=== PATIENT | male | born 1940 | race Caucasian/White ===

== ENCOUNTER 2018-09-01 15:37 | Emergency (ER) | payer MEDICARE, OTHER ==
[2018-09-01] MEDS ORDERED: ASPIRIN 81 MG CHEWABLE TABLET PO ONE (15:59)
[2018-09-01 16:11] LABS: BASO % 0.3 % (0-6); EOS % 0.6 % (0-6); HEMATOCRIT 38.1 % (42.0-52.0); LYMPH % 5.4 % (16-45); MEAN CELL VOLUME 91.1 fl (81-97); MEAN CORPUSCULAR HEMOGLOBIN 31.1 pg (27-33); MEAN CORPUSCULAR HGB CONC 34.1 g/dl (32-36); MEAN PLATELET VOLUME 9.4 fl (7.4-10.4); MONO % 0.8 % (0-9); PLATELET COUNT 263 K/uL (130-400); RED BLOOD COUNT 4.18 M/uL (4.40-5.70); RED CELL DISTRIBUTION WIDTH 12.7 % (11.5-14.5); WHITE BLOOD COUNT W/O DIFF 3.5 K/uL (4.2-12.2)
[2018-09-01 16:24] LABS: BLOOD UREA NITROGEN 15 mg/dL (8-23); CREATININE 1.2 mg/dL (0.7-1.2); EST GLOMERULAR FILTRATION RATE > 60 mL/min; INFLUENZA A NEGATIVE (NEGATIVE); INFLUENZA B NEGATIVE (NEGATIVE)
[2018-09-01 16:25] LABS: TOTAL PROTEIN 7.2 g/dL (6.6-8.7)
[2018-09-01 16:27] LABS: GLUCOSE,RANDOM 128 mg/dL (74-109)
[2018-09-01 16:30] LABS: ALB/GLOB RATIO 1.2 (1.1-1.8); ALBUMIN 3.9 g/dL (4.0-5.0); ALKALINE PHOSPHATASE 117 U/L (40-129); ALT/SGPT 10 U/L (<41); AST/SGOT 21 U/L (10.0-50.0)
[2018-09-01 16:31] LABS: ARTERIAL BLD GAS O2 SATURATION 92.4 % (95-98); ARTERIAL BLOOD GAS BASE EXCESS -1.6 mmol/L (-2 - 3); ARTERIAL BLOOD GAS PCO2 25.4 mmHg (35-48); ARTERIAL BLOOD GAS pH 7.51 (7.35-7.45); CARBOXYHEMOGLOBIN 1.5 % (0-1.5); METHEMOGLOBIN 0.4 % (0.0-1.5); O2 HEMOGLOBIN 90.7 % vol (94-99); TOTAL HEMOGLOBIN 11.5 g/dl (14-18)
[2018-09-01 16:41] LABS: ALLEN TEST PASS
[2018-09-01 16:50] LABS: CREATINE PHOSPHOKINASE 146 U/L (39-308)
[2018-09-01 16:51] LABS: CKMB 9.3 ng/mL (<6.73)
[2018-09-01] MEDS ORDERED: HEPARIN SODIUM 1000 UNIT/1 ML 10ML VIAL IVP ONE (16:56)
[2018-09-01] MEDS ORDERED: HEPARIN SODIUM/D5W 25,000 UNITS/500 ML BAG IV SCH ×2 (17:00→17:42)
[2018-09-01] MEDS ORDERED: ACETAMINOPHEN 500 MG TABLET PO ONE (17:33)
--- NOTE | 2018-09-01 17:44 | Emergency Department Record ---
History of Present Illness - General Chief Complaint: Shortness of breath Stated Complaint: JJ,SHAKING Time Seen by Provider: 09/01/18 15:54 Source: Patient, Family Mode of Arrival: Wheelchair Limitations: No limitations - History of Present Illness Initial Comments: pt started feeling cold 2 days ago, he then started feeling sob and running a fever yesterday. he had cp this morning which is gone now. he now feels very weak and sob. MD Complaint: Chest pain, Shortness of breath Onset/Timin -: Days(s) Quality: Aching Consistency: Constant Improves With: Nothing Worsens With: Exertion Associated Symptoms: Chest pain, Fever, Orthopnia Treatments Prior to Arrival: None - Related Data Home Medications Medication Instructions Recorded Confirmed Last Taken Cilostazol 100 mg PO DAILY 09/01/18 09/01/18 Unknown Losartan Potassium 100 mg PO DAILY 09/01/18 09/01/18 Unknown Meloxicam 15 mg PO DAILY 09/01/18 09/01/18 Unknown Metoprolol Tartrate 100 mg PO DAILY 09/01/18 09/01/18 Unknown Pravastatin Sodium [Pravachol] 40 mg PO DAILY 09/01/18 09/01/18 Unknown Allergies Allergy/AdvReac Type Severity Reaction Status Date / Time No Known Drug Allergies Allergy Verified 09/01/18 15:54 Travel Screening - Travel/Exposure Within Last 30 Days Have you traveled within the last 30 days?: No Review of Systems Reviewed: No additional complaints except as noted below Constitutional: Reports: As per HPI, Fever, Weakness. Denies: Chills, Malaise, Night sweats, Weight change Eyes: Reports: As per HPI. Denies: Eye discharge, Eye pain, Photophobia, Vision change ENT: Reports: As per HPI. Denies: Congestion, Dental pain, Ear pain, Epistaxis , Hearing loss, Throat pain Respiratory: Reports: As per HPI, Cough. Denies: Dyspnea, Hemoptysis, Stridor, Wheezes Cardiovascular: Reports: As per HPI, Chest pain. Denies: Arrhythmia, Dyspnea on exertion, Edema, Murmurs, Orthopnea, Palpitations, Paroxysmal nocturnal dyspnea, Rheumatic Fever, Syncope Endocrine: Reports: As per HPI. Denies: Fatigue, Heat or cold intolerance, Polydipsia, Polyuria Gastrointestinal: Reports: As per HPI. Denies: Abdominal pain, Constipation, Diarrhea, Hematemesis, Hematochezia, Melena, Nausea, Vomiting Genitourinary: Reports: As per HPI. Denies: Dysuria, Frequency, Hematuria, Incontinence, Retention, Testicular pain, Testicular mass, Urgency Musculoskeletal: Reports: As per HPI. Denies: Arthralgia, Back pain, Gout, Joint swelling, Myalgia, Neck pain Skin: Reports: As per HPI. Denies: Bruising, Change in color, Change in hair/ nails, Lesions, Pruritus, Rash Neurological: Reports: As per HPI. Denies: Abnormal gait, Confusion, Headache, Numbness, Paresthesias, Seizure, Tingling, Tremors, Vertigo, Weakness Psychiatric: Reports: As per HPI. Denies: Anxiety, Auditory hallucinations, Depression, Homicidal thoughts, Suicidal thoughts, Visual hallucinations Hematological/Lymphatic: Reports: As per HPI. Denies: Anemia, Blood Clots, Easy bleeding, Easy bruising, Swollen glands Past Medical History - SOCIAL HISTORY Smoking Status: Former smoker Alcohol Use: Rare Drug Use: None - RESPIRATORY Hx Respiratory Disorders: No - CARDIOVASCULAR Hx Cardio Disorders: Yes Hx Hypertension: Yes - NEURO Hx Neuro Disorders: No - GI Hx GI Disorders: No - Hx Genitourinary Disorders: No - ENDOCRINE Hx Endocrine Disorders: No - MUSCULOSKELETAL Hx Musculoskeletal Disorders: No - PSYCH Hx Psych Problems: No - HEMATOLOGY/ONCOLOGY Hx Hematology/Oncology Disorders: No Family Medical History Any Significant Family History?: No Physical Exam - General General Appearance: Alert, Oriented x3, Cooperative, Moderate distress - Head Head exam: Normal inspection - Eye Eye exam: Normal appearance, PERRL, EOMI Pupils: Normal accommodation - ENT ENT exam: Normal exam, Mucous membranes moist, Normal external ear exam, Normal orophraynx Ear exam: Normal external inspection. negative: External canal tenderness Nasal Exam: Normal inspection. negative: Discharge, Sinus tenderness Mouth exam: Normal external inspection, Tongue normal Teeth exam: Normal inspection. negative: Dental caries Throat exam: Normal inspection. negative: Tonsillar erythema, Tonsillar exudate - Neck Neck exam: Normal inspection, Full ROM. negative: Tenderness - Respiratory Respiratory exam: Normal lung sounds bilaterally. negative: Respiratory distress - Cardiovascular Cardiovascular Exam: Normal rhythm, Normal heart sounds, Tachycardia - GI/Abdominal GI/Abdominal exam: Soft, Normal bowel sounds. negative: Tenderness - Rectal Rectal exam: Deferred - exam: Deferred - Extremities Extremities exam: Normal inspection, Full ROM, Normal capillary refill. negative: Tenderness - Back Back exam: Reports: Normal inspection, Full ROM. 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 Medical Decision Making - Lab Data Result diagrams: 09/01/18 15:54 09/01/18 15:54 Lab Results 09/01/18 09/01/18 09/01/18 Range/Units 15:54 15:54 15:54 WBC 3.5 L (4.2-12.2) K/uL RBC 4.18 L (4.40-5.70) M/uL Hgb 13.0 L (14.0-18.0) gm/dl Hct 38.1 L (42.0-52.0) % MCV 91.1 (81-97) fl MCH 31.1 (27-33) pg MCHC 34.1 (32-36) g/dl RDW 12.7 (11.5-14.5) % Plt Count 263 (130-400) K/uL MPV 9.4 (7.4-10.4) fl Neutrophils % 94.0 H (47-80) % Band Neutrophils % 0.0 (0-5) % Lymphocytes % 5.4 L (16-45) % Monocytes % 0.8 (0-9) % Eosinophils % 0.6 (0-6) % Basophils % 0.3 (0-6) % Lymphocytes 4.0 L (16-45) % Monocytes 1.0 (0-9) % Eosinophil Count 1.0 (0-6) % D-Dimer 2.51 H (0-0.59) mg/L FEU Puncture Site pCO2 (35-48) mmHg pO2 (83-108) mmHg HCO3 (18-23) mmol/L Oxyhemoglobin (94-99) % vol ABG pH (7.35-7.45) ABG O2 Saturation (95-98) % ABG Base Excess (-2 - 3) mmol/L Gavino Test Carboxyhemoglobin (0-1.5) % Methemoglobin (0.0-1.5) % Total Hemoglobin (14-18) g/dl Actual Respiration Rate (10-18) /MIN FiO2 Sodium 125 L (136-145) mmol/L Potassium 4.1 (3.4-4.5) mmol/L Chloride 88 L (98-107) mmol/L Carbon Dioxide 21.0 L (22-29) mmol/L Anion Gap 16.0 (7-16) BUN 15 (8-23) mg/dL Creatinine 1.2 (0.7-1.2) mg/dL Estimated GFR > 60 mL/min Random Glucose 128 H (74-109) mg/dL Calcium 8.8 (8.8-10.2) mg/dL Total Bilirubin 0.90 (0.2-1.0) mg/dL AST 21 (10.0-50.0) U/L ALT 10 (<41) U/L Alkaline Phosphatase 117 (40-129) U/L Creatine Kinase 146 (39-308) U/L CK-MB (CK-2) 9.3 H (<6.73) ng/mL CK-MB (CK-2) Rel Index 6.30 H (0-4) % Troponin T 0.125 H* (0-0.010) ng/mL NT-Pro-B Natriuret Pep 3175.00 H (<450) pg/mL Total Protein 7.2 (6.6-8.7) g/dL Albumin 3.9 L (4.0-5.0) g/dL Globulin 3.3 (1.4-4.8) gm/dL Albumin/Globulin Ratio 1.2 (1.1-1.8) Influenza Type A Ag (NEGATIVE) Influenza Type B Ag (NEGATIVE) 09/01/18 09/01/18 09/01/18 Range/Units 15:54 15:54 15:54 WBC (4.2-12.2) K/uL RBC (4.40-5.70) M/uL Hgb (14.0-18.0) gm/dl Hct (42.0-52.0) % MCV (81-97) fl MCH (27-33) pg MCHC (32-36) g/dl RDW (11.5-14.5) % Plt Count (130-400) K/uL MPV (7.4-10.4) fl Neutrophils % (47-80) % Band Neutrophils % (0-5) % Lymphocytes % (16-45) % Monocytes % (0-9) % Eosinophils % (0-6) % Basophils % (0-6) % Lymphocytes (16-45) % Monocytes (0-9) % Eosinophil Count (0-6) % D-Dimer (0-0.59) mg/L FEU Puncture Site pCO2 (35-48) mmHg pO2 (83-108) mmHg HCO3 (18-23) mmol/L Oxyhemoglobin (94-99) % vol ABG pH (7.35-7.45) ABG O2 Saturation (95-98) % ABG Base Excess (-2 - 3) mmol/L Gavino Test Carboxyhemoglobin (0-1.5) % Methemoglobin (0.0-1.5) % Total Hemoglobin (14-18) g/dl Actual Respiration Rate (10-18) /MIN FiO2 Sodium (136-145) mmol/L Potassium (3.4-4.5) mmol/L Chloride (98-107) mmol/L Carbon Dioxide (22-29) mmol/L Anion Gap (7-16) BUN (8-23) mg/dL Creatinine (0.7-1.2) mg/dL Estimated GFR mL/min Random Glucose (74-109) mg/dL Calcium (8.8-10.2) mg/dL Total Bilirubin (0.2-1.0) mg/dL AST (10.0-50.0) U/L ALT (<41) U/L Alkaline Phosphatase (40-129) U/L Creatine Kinase Cancelled Cancelled (39-308) U/L CK-MB (CK-2) (<6.73) ng/mL CK-MB (CK-2) Rel Index Cancelled (0-4) % Troponin T (0-0.010) ng/mL NT-Pro-B Natriuret Pep (<450) pg/mL Total Protein (6.6-8.7) g/dL Albumin (4.0-5.0) g/dL Globulin (1.4-4.8) gm/dL Albumin/Globulin Ratio (1.1-1.8) Influenza Type A Ag Negative (NEGATIVE) Influenza Type B Ag Negative (NEGATIVE) 09/01/18 Range/Units 16:03 WBC (4.2-12.2) K/uL RBC (4.40-5.70) M/uL Hgb (14.0-18.0) gm/dl Hct (42.0-52.0) % MCV (81-97) fl MCH (27-33) pg MCHC (32-36) g/dl RDW (11.5-14.5) % Plt Count (130-400) K/uL MPV (7.4-10.4) fl Neutrophils % (47-80) % Band Neutrophils % (0-5) % Lymphocytes % (16-45) % Monocytes % (0-9) % Eosinophils % (0-6) % Basophils % (0-6) % Lymphocytes (16-45) % Monocytes (0-9) % Eosinophil Count (0-6) % D-Dimer (0-0.59) mg/L FEU Puncture Site Left wrist pCO2 25.4 L (35-48) mmHg pO2 53.0 L (83-108) mmHg HCO3 20.0 (18-23) mmol/L Oxyhemoglobin 90.7 L (94-99) % vol ABG pH 7.51 H (7.35-7.45) ABG O2 Saturation 92.4 L (95-98) % ABG Base Excess -1.6 (-2 - 3) mmol/L Gavino Test Pass Carboxyhemoglobin 1.5 (0-1.5) % Methemoglobin 0.4 (0.0-1.5) % Total Hemoglobin 11.5 L (14-18) g/dl Actual Respiration Rate 22.0 H (10-18) /MIN FiO2 Not Reportable Sodium (136-145) mmol/L Potassium (3.4-4.5) mmol/L Chloride (98-107) mmol/L Carbon Dioxide (22-29) mmol/L Anion Gap (7-16) BUN (8-23) mg/dL Creatinine (0.7-1.2) mg/dL Estimated GFR mL/min Random Glucose (74-109) mg/dL Calcium (8.8-10.2) mg/dL Total Bilirubin (0.2-1.0) mg/dL AST (10.0-50.0) U/L ALT (<41) U/L Alkaline Phosphatase (40-129) U/L Creatine Kinase (39-308) U/L CK-MB (CK-2) (<6.73) ng/mL CK-MB (CK-2) Rel Index (0-4) % Troponin T (0-0.010) ng/mL NT-Pro-B Natriuret Pep (<450) pg/mL Total Protein (6.6-8.7) g/dL Albumin (4.0-5.0) g/dL Globulin (1.4-4.8) gm/dL Albumin/Globulin Ratio (1.1-1.8) Influenza Type A Ag (NEGATIVE) Influenza Type B Ag (NEGATIVE) Disposition Disposition: Transfer (acute PA) Clinical Impression: Hyponatremia Acute PA Qualifiers: Myocardial infarction type: unspecified Involved coronary artery: unspecified coronary artery Qualified Code(s): I21.9 - Acute myocardial infarction, unspecified Pneumonia Qualifiers: Pneumonia type: due to unspecified organism Laterality: bilateral Lung location : lower lobe of lung Qualified Code(s): J18.1 - Lobar pneumonia, unspecified organism Disposition: Acute Care Hospital Transfer Transfer To: [facility] Reason For Transfer: needs higher level of care and habitat biologist Accepting Physician: dr chowdhury Time Discussed w/Accepting Physician: 18:29 Quality - Quality Measures Quality Measures: N/A - Blood Pressure Screening Does Patient Have Any of the Following: No Blood Pressure Classification: Hypertensive Reading Systolic Measurement: 185 Diastolic Measurement: 98 Screening for High Blood Pressure: < First Hypertensive BP, F/U Documented > [ [id number]] First Hypertensive Follow-up Interventions: Follow-up with rescreen GT 1 day and LT 4 weeks.
[2018-09-01 17:57] LABS: INR 1.1; PARTIAL THROMBOPLASTIN TIME 31.4 SECONDS (24.5-39.1); PROTHROMBIN TIME (PATIENT) 10.6 SECONDS (9.5-12.1)
[2018-09-01] MEDS ORDERED: CEFTRIAXONE 1GM/50ML BAG 1 GM/50 ML BAG IVPB ONE (18:06)
[2018-09-01] MEDS ORDERED: DOXYCYCLINE HYCLATE 100 MG CAPSULE PO ONE (18:30)
--- NOTE | 2018-09-04 10:44 | RADIOLOGY REPORT ---
EXAM: PORTABLE CHEST HISTORY: SHORTNESS OF BREATH FOR ONE DAY. TECHNIQUE: A single frontal view of the chest was obtained. Comparison: Chest radiograph 08/01/12. FINDINGS: Borderline cardiac silhouette enlargement. The pulmonary vasculature is not appreciably dilated. Patchy bibasilar pulmonary opacities. No significant definable pleural fluid collection. No visible pneumothorax. IMPRESSION: PATCHY BIBASILAR PULMONARY OPACITIES; APPEARANCE IS NEW OR PROGRESSED FROM 2013 COMPARISON. FINDINGS MAY REPRESENT ATELECTASIS AND/OR ACUTE AIR SPACE DISEASE. JOB NUMBER: [id number] [facility]
--- NOTE | 2018-09-04 10:50 | CT ANGIOGRAM REPORT ---
EXAM: CT ANGIOGRAM OF THE CHEST HISTORY: ELEVATED D-DIMER. MYOCARDIAL INFARCTION. EVALUATE FOR PULMONARY EMBOLUS. TECHNIQUE: Routine CTA examination of the chest was performed utilizing a pulmonary embolus protocol with 80 ml of Omnipaque 350 utilized. Maximum intensity projection reformatted images are generated in multiple planes and reviewed. Comparison: CT chest with contrast dated 08/14/12. FINDINGS: Opacification of the pulmonary arteries is less than optimal. Opacification is satisfactory for interpretation centrally. Additionally, evaluation of the segmental arteries is limited by motion artifact at several levels. No luminal filling defect is noted in the outflow tract, main arteries nor lobar arteries to suggest acute pulmonary embolus. The proximal segmental arteries that are unaffected by respiratory motion are without luminal filling defect. The heart is not grossly enlarged. There is a borderline pericardial effusion. There is dense atherosclerotic calcification of the left coronary artery and its branches.. Mild to moderate atherosclerotic calcification of the right coronary artery is suspected. No intraabdominal nor retroperitoneal lymphadenopathy. The lungs are hyperinflated consistent with COPD. Mild intralobular septal thickening is noted in the upper lungs. Reticular opacity prominence is noted in each lung base. This is more pronounced than on the 2013 examination. This may relate to progression of pulmonary fibrosis though edema supposed on fibrosis cannot be excluded. There is mild wall thickening of several segmental bronchi consistent with bronchitis. No pleural effusion. The adrenal glands are not enlarged. No lytic or blastic bone lesion. IMPRESSION: 1. EVALUATION OF THE SEGMENTAL ARTERIES IS LIMITED BY SUBOPTIMAL OPACIFICATION WELL BY MOTION ARTIFACT. NO EVIDENCE OF ACUTE PULMONARY EMBOLIC DISEASE WITHIN THE OUTFLOW TRACT, MAIN ARTERIES, LOBAR ARTERIES, OR PROXIMAL SEGMENTAL ARTERIES THAT ARE UNAFFECTED BY MOTION. 2. DENSE CALCIFICATION WITHIN THE LEFT CORONARY ARTERY AND ITS BRANCHES. 3. BORDERLINE CARDIOMEGALY. 4. RETICULAR OPACITY PROMINENCE IN EACH LUNG BASE MORE PRONOUNCED SINCE THE 2013 EXAMINATION. THIS MAY RELATE TO PROGRESSION OF CHRONIC INTERSTITIAL CHANGES THOUGH INTERSTITIAL EDEMA SUPERIMPOSED ON CHRONIC INTERSTITIAL CHANGE WOULD BE DIFFICULT TO EXCLUDE. MINOR INTRALOBULAR SEPTAL THICKENING ALSO SUGGESTED IN THE LUNG APICES. THIS CAN ALSO BE SEEN WITH EDEMA. 5. MILD WALL THICKENING OF SEVERAL SEGMENTAL BRONCHI. THIS CAN BE SEEN WITH BRONCHITIS OR REACTIVE AIRWAYS DISEASE. ADDENDUM: Not mentioned in the original report, cholelithiasis within the gallbladder neck JOB NUMBER: [id number] [facility]
== END 2018-09-01 20:50 | disposition short-term general hospital (02) ==
LOC: ER 15:37
DX: I21.9 Acute myocardial infarction, unspecified (principal); J18.1 Lobar pneumonia, unspecified organism; E87.1 Hypo-osmolality and hyponatremia; R53.1 Weakness; I10 Essential (primary) hypertension; Z87.891 Personal history of nicotine dependence
CPT/HCPCS: 99285 ×2; 96365; 96366; 96375; 82550; 83605; 85730; 85610; 82375; 82553; 80053; 82803; 87400; 84484; 85379; 85027; 83880; 71045; 71275; 36600; 93005; 93010; Q9967; J0696

== ENCOUNTER 2018-09-13 11:45 | Inpatient (IN) | payer MEDICARE, OTHER ==
[2018-09-13] MEDS ORDERED: PNEUM 13-VAL/PF 0.5 ML IM ONE (17:08)
--- NOTE | 2018-09-13 18:06 | History & Physical ---
History of Present Illness - Date Date of Service for History & Physical: 09/13/18 - History of Present Illness Admitting Diagnosis: deconditioning s/p CABG History of Present Illness: Patient had a non elevated AL and than had CADG times three on 09/04/2018 and transferred here to get stronger General - Cognitive Patterns Speech: Normal Orientation: Oriented x3 - Communication Preferred Language?: Polish Level of Education: College Comprehension Ability: No Impairment Able to Read: Yes Able to Write: Yes Select best description of speech pattern: Clear Speech Ability to express ideas and wants: Understood Understanding verbal content: Understands - Psychosocial Well-Being Usual Living Arrangement: Spouse - Physical Functioning Activity Level: Up with assist x1 Turning: Self ad evan ROM Ability: Moves all extremities Ambulation Ability: Independent Bed Mobility: Independent Transfer Ability: Independent Bathing Ability: Independent Personal Hygiene: Independent Dressing Ability: Dependent Eating (Feeding) Ability: Independent Toileting Ability: Independent Administer Own Medication: Independent - Continence Bowel Pattern: Diarrhea Bladder Pattern: Normal - Dental Status Unable to examine: No Broken or loosely fitting full or partial dentures: No No natural teeth or tooth fragment(s) (edentulous): No Abnormal mouth tissue (ulcers, masses, oral lesions, etc.): No Obvious or likely cavity or broken natural teeth: No Inflamed or bleeding gums or loose natural teeth: No Mouth/facial pain, discomfort or difficulty chewing: No - Nutrition Screening Poor oral intake > 1 week: No Unplanned weight loss in specified time frame: No Nutrition Support via tube feedings or parenteral nutrition: No Pressure Ulcer: No Significantly underweight define as BMI <18.5 kg/m2: No Albumin <2.5mg/dL: No Persistent nausea/vomiting/diarrhea >3 days: No Difficulty chewing/swallowing/mouth sores: Yes Review of Systems Reviewed: No additional complaints except as noted below Constitutional: Reports: As per HPI. Denies: Chills, Fever, Malaise, Night sweats, Weakness, Weight change Eyes: Reports: As per HPI. Denies: Eye discharge, Eye pain, Photophobia, Vision change ENT: Reports: As per HPI. Denies: Congestion, Dental pain, Ear pain, Epistaxis , Hearing loss, Throat pain Respiratory: Reports: As per HPI. Denies: Cough, Dyspnea, Hemoptysis, Stridor, Wheezes Cardiovascular: Reports: As per HPI. Denies: Arrhythmia, Chest pain, Dyspnea on exertion, Edema, Murmurs, Orthopnea, Palpitations, Paroxysmal nocturnal dyspnea, Rheumatic Fever, Syncope Endocrine: Reports: As per HPI. Denies: Fatigue, Heat or cold intolerance, Polydipsia, Polyuria Gastrointestinal: Reports: As per HPI. Denies: Abdominal pain, Constipation, Diarrhea, Hematemesis, Hematochezia, Melena, Nausea, Vomiting Genitourinary: Reports: As per HPI. Denies: Dysuria, Frequency, Hematuria, Incontinence, Retention, Testicular pain, Testicular mass, Urgency Musculoskeletal: Reports: As per HPI. Denies: Arthralgia, Back pain, Gout, Joint swelling, Myalgia, Neck pain Skin: Reports: As per HPI. Denies: Bruising, Change in color, Change in hair/ nails, Lesions, Pruritus, Rash Neurological: Reports: As per HPI. Denies: Abnormal gait, Confusion, Headache, Numbness, Paresthesias, Seizure, Tingling, Tremors, Vertigo, Weakness Psychiatric: Reports: As per HPI. Denies: Anxiety, Auditory hallucinations, Depression, Homicidal thoughts, Suicidal thoughts, Visual hallucinations Hematological/Lymphatic: Reports: As per HPI. Denies: Anemia, Blood Clots, Easy bleeding, Easy bruising, Swollen glands Past Medical History - SOCIAL HISTORY Smoking Status: Former smoker Alcohol Use: Occasional - SURGICAL HISTORY Past Surgical History: knee - RESPIRATORY Hx Respiratory Disorders: No - CARDIOVASCULAR Hx Cardio Disorders: Yes Hx Hypertension: Yes - NEURO Hx Neuro Disorders: No - GI Hx GI Disorders: No - Hx Genitourinary Disorders: No - ENDOCRINE Hx Endocrine Disorders: No - MUSCULOSKELETAL Hx Musculoskeletal Disorders: No - PSYCH Hx Psych Problems: No - HEMATOLOGY/ONCOLOGY Hx Hematology/Oncology Disorders: No Family Medical History Any Significant Family History?: Yes Hx Cancer: Father H&P Meds/Allergies - Allergies Allergies: Allergies Allergy/AdvReac Type Severity Reaction Status Date / Time No Known Drug Allergies Allergy Verified 09/01/18 15:54 - Active Medications Active Medications: Current Medications Amiodarone HCl (Pacerone) 200 mg PO BID [facility] Stop: 09/19/18 22:01 Amiodarone HCl (Pacerone) 200 mg PO DAILY [facility] Ascorbic Acid (Vitamin C) 1,000 mg PO BID [facility] Stop: 09/26/18 22:01 Aspirin (Ecotrin (Ec)) 81 mg PO DAILY [facility] Calcium/Vitamin D (Calcium 500+D Tablet) 1 tab PO BID [facility] Carvedilol (Coreg) 6.25 mg PO BID [facility] Losartan Potassium (Cozaar) 25 mg PO DAILY [facility] Magnesium Oxide (Mag Ox) 400 mg PO DAILY [facility] Multivitamins/Minerals (Centrum) 1 tab PO DAILY [facility] Simvastatin (Zocor) 20 mg PO QHS [facility] Physical Exam - Vital Signs Vital Signs: Vital Signs - Last 24 Hrs Temp Pulse Resp BP Pulse Ox 09/13/18 11:30 97.8 F 67 16 121/68 99 - General General Appearance: Alert, Oriented x3, Cooperative, No acute distress - Head Head exam: Normal inspection - Eye Eye exam: Normal appearance, PERRL Pupils: Normal accommodation - ENT ENT exam: Normal exam, Mucous membranes moist, Normal external ear exam, Normal orophraynx, TM's normal bilaterally Ear exam: Normal external inspection. negative: External canal tenderness Nasal Exam: Normal inspection. negative: Discharge, Sinus tenderness Mouth exam: Normal external inspection, Tongue normal Teeth exam: Normal inspection. negative: Dental caries Throat exam: Normal inspection. negative: Tonsillar erythema, Tonsillar exudate - Neck Neck exam: Normal inspection, Full ROM. negative: Tenderness - Respiratory Respiratory exam: Normal lung sounds bilaterally. negative: Respiratory distress - Cardiovascular Cardiovascular Exam: Regular rate, Normal rhythm, Normal heart sounds - GI/Abdominal GI/Abdominal exam: Soft, Normal bowel sounds. negative: Tenderness - Rectal Rectal exam: Deferred - exam: Deferred - Extremities Extremities exam: Normal inspection, Full ROM, Normal capillary refill. negative: Tenderness - Back Back exam: Reports: Normal inspection, Full ROM. Denies: Muscle spasm, Rash noted, Tenderness - Neurological Neurological exam: Alert, Normal gait, Oriented X3, Reflexes normal - Psychiatric Psychiatric exam: Normal affect, Normal mood - Skin Skin exam: Dry, Intact, Normal color, Warm H&P Results - Labs Result Diagrams: 09/14/18 06:00 09/14/18 06:00 Discharge Potential - Discharge Potential Discharge Potential: good discharge potential Plan - Swing Bed Certification Initial Certification Due: 09/13/18 14 Day Re-Cert Due: 09/27/18 44 Day Re-Cert Due: 10/27/18 74 Day Re-Cert Due: 11/26/18 - Detailed Diagnosis and Plan (1) NSTEMI (non-ST elevated myocardial infarction) Current Visit: Yes Status: Acute Base Code: I21.4 - NON-ST ELEVATION (NSTEMI ) MYOCARDIAL INFARCTION Priority: High (2) S/P CABG x 3 Current Visit: Yes Status: Acute Base Code: Z95.1 - PRESENCE OF AORTOCORONARY BYPASS GRAFT Priority: High (3) Atrial fib/flutter, transient Current Visit: Yes Status: Acute Base Code: [id number] - Priority: Medium (4) Hypertension Current Visit: Yes Status: Acute Qualifiers: Hypertension type: essential hypertension Qualified Code(s): I10 - Essential (primary) hypertension Base Code: I10 - ESSENTIAL (PRIMARY) HYPERTENSION Priority: Medium (5) Hypercholesteremia Current Visit: Yes Status: Acute Base Code: E78.00 - PURE HYPERCHOLESTEROLEMIA, UNSPECIFIED Priority: Medium (6) PAD (peripheral artery disease) Current Visit: Yes Status: Acute Base Code: I73.9 - PERIPHERAL VASCULAR DISEASE, UNSPECIFIED Priority: Medium
--- NOTE | 2018-09-13 18:26 | Rehab Evaluation ---
Patient Information - Patient Information Diagnosis: Deconditioning s/p CABG, three vessel Ordered Treatment: PT Evaluate and Treat Status: Initial Evaluation Surgery: Yes (3 vessel CABG) Date of Surgery: 10/04/18 History: Detail (Pt presented to [facility] ED on 09/01/18 w/chest pain and shortness of breath. He was subsequently transferred to [facility] with acute myocardial infarction. Underwent 3 vessel CABG on 09/04/18 and is admitted for short term rehabilitation to address deconditioning.) Past Medical/Surgical Hx: PAST MEDICAL/SURGICAL HISTORY Past Surgical History knee PMH - Respiratory Hx Respiratory Disorders No PMH - Cardiovascular Hx Cardiovascular Disorders Yes Hx Hypertension Yes PMH - Neuro Hx Neurological Disorders No PMH - GI Hx Gastrointestinal Disorders No PMH - Hx Genitourinary Disorders No PMH - Endocrine Hx Endocrine Disorders No PMH - Musculoskeletal Hx Musculoskeletal Disorders No PMH - Psych Hx Psychiatric Problems No PMH - Hematology/Oncology Hx Hematology/Oncology No Disorders Premorbid Status: Detail (Pt was actively participating in usual ADLs, including 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 He did not engage in regular exercise but was active with daily activities. He was independent with all self-care activities, yardwork, and horse maintenance. He reports that he fell 2 or 3 times just before coming to the ED because he felt so weak, but generally has no balance difficulties. He did not use any assistive device for ambulation, but he does own a cane.) Social History: Detail (Pt lives with his Pat and one dog and one cat, in a single story home with an unfinished basement (14 stairs). There are three steps to enter from the front and from the garage, 6 steps at the back deck. No handrail at the front, freezer next to the steps in the garage, and B handrails at the deck. He usually drives a big tydy truck, and he and his travel frequently with a fifth wheel trailer, that he admits is becoming a bit more difficult to manage.) Precautions: [place], Fall - Time With Patient Total Time Spent With Patient (Min): 40 Treatment Procedures: Detail (PT Evaluation) Subjective Information - Subjective Information Per Patient (Pt reclined in bed upon arrival; awake, alert, cooperative/eager for therapy. Denies pain at rest; actively using chest hugger to guard during mobility.) Objective Data - Pain Pain Present: No - Mental Status Patient Orientation: Oriented x3 - Visual Perception Appears within normal limits for therapeutic activities - ROM Within normal limits - Strength/Tone Not within normal limits (Grossly 4/5 in B proximal LE's, otherwise 4+/5.) - Coordination Appears within normal limits for therapeutic activities - Bed Mobility Needs Assist (Pt was able to come to sitting at edge of bed with HOB elevated; suspect he would require assist to come to sitting from lying on flat surface.) - Transfers Independent (Came to standing at front wheeled walker from bed, elevated somewhat for ease.) - Balance Balance Sitting: Good Balance Standing: Good - Sensation Intact - Gait Detail (Pt ambulated from bedside out to underwood, to nrsg station, and back to room to sit in recliner (about 156 feet) w/CGA, with front wheeled walker. Mildy winded upon sitting, but was able to converse while walking.) Therapy Assessment - Therapy Assessment Detail (Pt exhibits mild proximal LE weakness, impaired activity tolerance, and difficulty with mobility consistent with deconditioning from medical procedure and hospitalization. He is a good candidate for short term rehabilitation to facilitate safe return to home environment.) Patient Education - Patient Education Teaching Topic: Equipment Use, Precautions Response: Verbalize Understanding Teaching Method: Discussion Teaching Recipient: Patient, Family Barriers To Learning: None Problem List - Problem List Physical Therapy Problem List: Detail (1. Requires assist for bed mobility. 2. Impaired activity tolerance. 3. Mild proximal LE weakness.) Goals - Goals Physical Therapy Goals: 1. Formally assess balance. 2. Pt will be independent with bed mobility. 3. Pt will tolerate 20 minutes of low intensity activity/exercise without undue fatigue. 4. Pt will exhibit 4+/5 strength in B proximal LE's for stability with ambulation w/or w/o assistive device. 5. Pt will safely and independently ambulate over short community distances/surfaces with least restrictive assistive device. Prognosis - Prognosis Good Plan - Plan Physical Therapy Plan: Pt will be seen 1-2 times daily M - F for gait and balance training, mobility training, instruction in therapeutic exercise.
[2018-09-13] MEDS ORDERED: POTASSIUM CHLORIDE 10 MEQ TAB PO SCH (22:00)
[2018-09-13] MEDS: CALCIUM CARB/VITAMIN D 500MG/200IU PO SCH (23:01)
[2018-09-13] MEDS: CARVEDILOL 3.125 MG TABLET PO SCH (23:01)
[2018-09-13] MEDS: AMIODARONE HCL 200 MG TABLET PO SCH (23:02)
[2018-09-13] MEDS: ASCORBIC ACID 500 MG TAB PO SCH (23:02)
[2018-09-13] MEDS: SIMVASTATIN 20 MG TABLET PO SCH (23:02)
[2018-09-14 06:38] LABS: HEMATOCRIT 26.5 % (42.0-52.0); HEMOGLOBIN 8.5 gm/dl (14.0-18.0); MEAN CORPUSCULAR HEMOGLOBIN 30.1 pg (27-33); MEAN CORPUSCULAR HGB CONC 32.1 g/dl (32-36); MEAN PLATELET VOLUME 8.1 fl (7.4-10.4); PLATELET COUNT 535 K/uL (130-400); RED BLOOD COUNT 2.82 M/uL (4.40-5.70); WHITE BLOOD COUNT W/O DIFF 11.5 K/uL (4.2-12.2)
[2018-09-14 06:45] LABS: BLOOD UREA NITROGEN 18 mg/dL (8-23); CREATININE 1.1 mg/dL (0.7-1.2); EST GLOMERULAR FILTRATION RATE > 60 mL/min; GLUCOSE,RANDOM 117 mg/dL (74-109)
[2018-09-14 06:50] LABS: HYPOCHROMIA 1+
[2018-09-14] MEDS: CALCIUM CARB/VITAMIN D 500MG/200IU PO SCH ×2 (09:52→22:02)
[2018-09-14] MEDS: ASCORBIC ACID 500 MG TAB PO SCH ×2 (09:53→22:01)
[2018-09-14] MEDS: ENOXAPARIN 40 MG/0.4 ML SYR SQ SCH (09:53)
[2018-09-14] MEDS: LOSARTAN POTASSIUM 25 MG TABLET PO SCH (09:53)
[2018-09-14] MEDS: AMIODARONE HCL 200 MG TABLET PO SCH ×2 (09:53→22:02)
[2018-09-14] MEDS: MULTIVITAMINS/MINERALS TABLET PO SCH (09:53)
[2018-09-14] MEDS: ASPIRIN 81 MG TABEC PO SCH (09:53)
[2018-09-14] MEDS: CARVEDILOL 3.125 MG TABLET PO SCH ×2 (09:53→22:03)
[2018-09-14] MEDS: MAGNESIUM OXIDE 400 MG TABLET PO SCH (09:53)
[2018-09-14] MEDS ORDERED: FUROSEMIDE 40 MG TABLET PO SCH (10:00)
--- NOTE | 2018-09-14 13:20 | Rehab Evaluation ---
Patient Information - Patient Information Diagnosis: Deconditioning s/p CABG x 3 Ordered Treatment: OT Evaluate and Treat Status: Initial Evaluation Surgery: Yes (3 vessel CABG) Date of Surgery: 09/04/18 History: Detail (Pt presented to [facility] ED on 09/01/18 w/chest pain and shortness of breath. He was subsequently transferred to [facility] with acute myocardial infarction. Underwent 3 vessel CABG on 09/04/18 and is admitted for short term rehabilitation to address deconditioning.) Past Medical/Surgical Hx: PAST MEDICAL/SURGICAL HISTORY Past Surgical History knee PMH - Respiratory Hx Respiratory Disorders No PMH - Cardiovascular Hx Cardiovascular Disorders Yes Hx Hypertension Yes PMH - Neuro Hx Neurological Disorders No Hx Seizures No PMH - GI Hx Gastrointestinal Disorders No PMH - Hx Genitourinary Disorders No PMH - Endocrine Hx Endocrine Disorders No PMH - Musculoskeletal Hx Musculoskeletal Disorders No PMH - Psych Hx Psychiatric Problems No PMH - Hematology/Oncology Hx Hematology/Oncology No Disorders Premorbid Status: Detail (Pt was actively participating in usual ADLs, including 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 He did not engage in regular exercise but was active with daily activities. He was independent with all self-care activities, yardwork, washing dishes and horse maintenance. He reports that he fell 2 or 3 times just before coming to the ED because he felt so weak, but generally has no balance difficulties. He did not use any assistive device for ambulation, but he does own a cane.) Social History: Detail (Pt lives with his Pat and one dog and one cat, in a single story home with an unfinished basement (14 stairs). He does have a workshop in the basement. There are three steps to enter from the front and from the garage, 6 steps at the back deck. No handrail at the front, freezer next to the steps in the garage, and B handrails at the deck. He has a walk in shower and a tub/shower combination, no seat but he has suction cup grab bars if needed. He has an elevated toilet in the main bathroom and a standard height toilet in the second bathroom, no grab bars next to either toilet. 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, and he and his travel frequently with a fifth wheel trailer, that he admits is becoming a bit more difficult to manage.) Precautions: [place], Fall, Other (No lifting greater than 10#) - Time With Patient Total Time Spent With Patient (Min): 60 Treatment Procedures: Detail (OT eval low complexity) Subjective Information - Subjective Information Per Patient Objective Data - Pain Pain Present: No - Mental Status Patient Orientation: Oriented x3 - Visual Perception Appears within normal limits for therapeutic activities - ROM Not within normal limits (Ethan shoulder flexion limited slightly due to surgery, remaining ethan UE AROM WNL) - Strength/Tone Not within normal limits (Ethan shoulder flexion not tested due to surgical restrictions although it is functional for self cares, ethan elbow and spark tester strength 4+/5) - Coordination Appears within normal limits for therapeutic activities - Transfers Needs Assist (Min assist for sit to stand from standard height toilet and shower seat.) - Balance Balance Sitting: Good Balance Standing: Good - Sensation Intact - Gait Detail (Pt ambulating in room with 2 wheeled walker Indly.) - ADL's/IADL's Detail (Pt able to complete showering in sitting and standing with min assist for sit to stand and assist for washing back. Pt Ind with doffing briefs, slipper socks and gown and donning shirt, underwear, shorts and slip on shoes. Pt Ind with standing at sink for oral hygiene and combing hair.) Therapy Assessment - Therapy Assessment Detail (Pt is Ind with showering in sitting and standing with no significant c/ o fatigue. UE AROM and strength limited slightly due to surgical precautions. Min assist for sit to stand from lower surfaces.) Problem List - Problem List Physical Therapy Problem List: Detail (1. Requires assist for bed mobility. 2. Impaired activity tolerance. 3. Mild proximal LE weakness.) Occupational Therapy Problem List: Detail (1. Slightly impaired activity tolerance. 2. Decreased functional mobility/sit to stand transfers) Goals - Goals Physical Therapy Goals: 1. Formally assess balance. 2. Pt will be independent with bed mobility. 3. Pt will tolerate 20 minutes of low intensity activity/exercise without undue fatigue. 4. Pt will exhibit 4+/5 strength in B proximal LE's for stability with ambulation w/or w/o assistive device. 5. Pt will safely and independently ambulate over short community distances/surfaces with least restrictive assistive device. Occupational Therapy Goals: 1. Pt will tolerate ADL/IADL activity with minimal c/o fatigue. 2. Pt will be Ind with functional mobility needed for Ind self cares. Prognosis - Prognosis Good Plan - Plan Physical Therapy Plan: Pt will be seen 1-2 times daily M - F for gait and balance training, mobility training, instruction in therapeutic exercise. Occupational Therapy Plan: OT 2-4 times per week to address goals and problem list above.
--- NOTE | 2018-09-14 13:47 | Physical Therapy Tx Note ---
Physical Therapy Tx Note - Treatment Note Tolerated: Good Total Time Spent With Patient: 20 Physical Therapy Tx Note: Detail (The patient was up in chair when PT arrived. The patient's was present for PT treatment. The patient ambulated with front wheeled walker a distance of 134 feet independently. The patient ambulated on 3 steps with use of one railing with supervision for safety only and on a curb step using proper technique with supervision. The patient complete a car transfer using proper technique without using UE's with supervison for safety only. The patient returned to room and admitted he was fatigued. Minimal shortness of breath was noted. After a short rest period, patient ambulated without device to bathroom with supervision. The patient required moderate PA of one with sit to stand from toilet due to fatigue. Further PT treatment was not completed due to fatigue. The patient was safe with car transfer and ambulation on stairs with supervision of . Patient is safe to go home this weekend for a home visit.) Physical Therapy Problem List: Detail (1. Requires assist for bed mobility. 2. Impaired activity tolerance. 3. Mild proximal LE weakness.) Physical Therapy Goals: 1. Formally assess balance. 2. Pt will be independent with bed mobility. 3. Pt will tolerate 20 minutes of low intensity activity/exercise without undue fatigue. 4. Pt will exhibit 4+/5 strength in B proximal LE's for stability with ambulation w/or w/o assistive device. 5. Pt will safely and independently ambulate over short community distances/surfaces with least restrictive assistive device. Physical Therapy Plan: Pt will be seen 1-2 times daily M - F for gait and balance training, mobility training, instruction in therapeutic exercise.
[2018-09-14] MEDS: SIMVASTATIN 20 MG TABLET PO SCH (22:01)
[2018-09-15] MEDS: LOSARTAN POTASSIUM 25 MG TABLET PO SCH (10:35)
[2018-09-15] MEDS: ASCORBIC ACID 500 MG TAB PO SCH ×2 (10:35→21:16)
[2018-09-15] MEDS: CALCIUM CARB/VITAMIN D 500MG/200IU PO SCH ×2 (10:35→21:17)
[2018-09-15] MEDS: ASPIRIN 81 MG TABEC PO SCH (10:36)
[2018-09-15] MEDS: AMIODARONE HCL 200 MG TABLET PO SCH ×2 (10:36→21:17)
[2018-09-15] MEDS: MULTIVITAMINS/MINERALS TABLET PO SCH (10:36)
[2018-09-15] MEDS: CARVEDILOL 3.125 MG TABLET PO SCH ×2 (10:36→21:16)
[2018-09-15] MEDS: MAGNESIUM OXIDE 400 MG TABLET PO SCH (10:39)
[2018-09-15] MEDS: ENOXAPARIN 40 MG/0.4 ML SYR SQ SCH (10:39)
[2018-09-15] MEDS: IBUPROFEN 400 MG TABLET PO PRN (20:04)
[2018-09-15] MEDS: SIMVASTATIN 20 MG TABLET PO SCH (21:16)
[2018-09-16] MEDS: ASCORBIC ACID 500 MG TAB PO SCH ×2 (09:19→21:54)
[2018-09-16] MEDS: MAGNESIUM OXIDE 400 MG TABLET PO SCH (09:19)
[2018-09-16] MEDS: CARVEDILOL 3.125 MG TABLET PO SCH ×2 (09:19→21:57)
[2018-09-16] MEDS: CALCIUM CARB/VITAMIN D 500MG/200IU PO SCH ×2 (09:19→21:57)
[2018-09-16] MEDS: ASPIRIN 81 MG TABEC PO SCH (09:19)
[2018-09-16] MEDS: ENOXAPARIN 40 MG/0.4 ML SYR SQ SCH (09:20)
[2018-09-16] MEDS: AMIODARONE HCL 200 MG TABLET PO SCH ×2 (09:20→21:55)
[2018-09-16] MEDS: MULTIVITAMINS/MINERALS TABLET PO SCH (09:20)
[2018-09-16] MEDS: LOSARTAN POTASSIUM 25 MG TABLET PO SCH (09:20)
[2018-09-16] MEDS: IBUPROFEN 400 MG TABLET PO PRN ×2 (11:33→19:12)
[2018-09-16] MEDS: SIMVASTATIN 20 MG TABLET PO SCH (21:57)
--- NOTE | 2018-09-17 09:33 | Discharge Summary ---
Providers Discharge Summary Date: 09/17/18 Date of admission: 09/13/18 11:45 Expected Date of Discharge: 09/17/18 Attending physician: Kodi Johnson Primary care physician: Rakan Dunlap Physical Exam - Vital Signs Vital Signs: Vital Signs - Last 24 Hrs Temp Pulse Resp BP Pulse Ox 09/17/18 08:00 98.1 F 70 18 136/78 100 09/16/18 20:00 98.0 F 66 18 148/75 96 - General General Appearance: Alert, Oriented x3, Cooperative, No acute distress - Head Head exam: Normal inspection - Eye Eye exam: Normal appearance, PERRL Pupils: Normal accommodation - ENT ENT exam: Normal exam, Mucous membranes moist, Normal external ear exam, Normal orophraynx, TM's normal bilaterally Ear exam: Normal external inspection. negative: External canal tenderness Nasal Exam: Normal inspection. negative: Discharge, Sinus tenderness Mouth exam: Normal external inspection, Tongue normal Teeth exam: Normal inspection. negative: Dental caries Throat exam: Normal inspection. negative: Tonsillar erythema, Tonsillar exudate - Neck Neck exam: Normal inspection, Full ROM. negative: Tenderness - Respiratory Respiratory exam: Normal lung sounds bilaterally. negative: Respiratory distress - Cardiovascular Cardiovascular Exam: Regular rate, Normal rhythm, Normal heart sounds - GI/Abdominal GI/Abdominal exam: Soft, Normal bowel sounds. negative: Tenderness - Rectal Rectal exam: Deferred - exam: Deferred - Extremities Extremities exam: Normal inspection, Full ROM, Normal capillary refill. negative: Tenderness - Back Back exam: Reports: Normal inspection, Full ROM. Denies: Muscle spasm, Rash noted, Tenderness - Neurological Neurological exam: Alert, Normal gait, Oriented X3, Reflexes normal - Psychiatric Psychiatric exam: Normal affect, Normal mood - Skin Skin exam: Dry, Intact, Normal color, Warm Hospitalization - Hospitalization Admission Diagnosis: deconditioning s/p CABG - Problem List (1) NSTEMI (non-ST elevated myocardial infarction) Current Visit: Yes Status: Acute Base Code: I21.4 - NON-ST ELEVATION (NSTEMI ) MYOCARDIAL INFARCTION (2) S/P CABG x 3 Current Visit: Yes Status: Acute Base Code: Z95.1 - PRESENCE OF AORTOCORONARY BYPASS GRAFT (3) Atrial fib/flutter, transient Current Visit: Yes Status: Acute Base Code: VIB3447 - (4) Hypertension Current Visit: Yes Status: Acute Discharge Diagnosis: Hypertension type: essential hypertension Qualified Code(s): I10 - Essential (primary) hypertension Base Code: I10 - ESSENTIAL (PRIMARY) HYPERTENSION (5) Hypercholesteremia Current Visit: Yes Status: Acute Base Code: E78.00 - PURE HYPERCHOLESTEROLEMIA, UNSPECIFIED (6) PAD (peripheral artery disease) Current Visit: Yes Status: Acute Base Code: I73.9 - PERIPHERAL VASCULAR DISEASE, UNSPECIFIED - Hospitalization Course Disposition: Home, Self-Care Reason For Discharge/Transfer: Medical Stability Hospital Course: patient progressed nicely and wants to go home with home therapy for 3 weeks and than follow up with Cardiology as scheduled follow up with family Dr in one week Abnormal Labs: Abnormal Lab Results 09/14/18 09/14/18 Range/Units 06:20 06:20 RBC 2.82 L (4.40-5.70) M/uL Hgb 8.5 L (14.0-18.0) gm/dl Hct 26.5 L (42.0-52.0) % Plt Count 535 H (130-400) K/uL Neutrophils % 82.0 H (47-80) % Lymphocytes 9.0 L (16-45) % Sodium 131 L (136-145) mmol/L Chloride 91 L (98-107) mmol/L Carbon Dioxide 31.0 H (22-29) mmol/L Random Glucose 117 H (74-109) mg/dL Calcium 8.7 L (8.8-10.2) mg/dL Condition at Discharge: (1) Good Discharge Diagnosis: decondition from open heart surgery. CAD. S/P Non stemi Myocardial infarction Discharge Medications - Discharge Medications Prescriptions: Amiodarone HCl [Pacerone] 200 mg PO DAILY #30 tablet Ascorbic Acid [Vitamin C] 1,000 mg PO BID #60 tab Carvedilol [Coreg] 6.25 mg PO BID #60 tablet Losartan Potassium [Cozaar] 25 mg PO DAILY #30 tablet Home Medications: Ambulatory Orders Cilostazol 100 mg PO DAILY 09/01/18 [Last Taken Unknown] Pravastatin Sodium [Pravachol] 40 mg PO DAILY 09/01/18 [Last Taken Unknown] Amiodarone HCl [Pacerone] 200 mg PO DAILY #30 tablet 09/17/18 [Last Taken Unknown] Ascorbic Acid [Vitamin C] 1,000 mg PO BID #60 tab 09/17/18 [Last Taken Unknown] Aspirin Enteric-Coated [Ecotrin (EC)] 81 mg PO DAILY tabec 09/17/18 [Last Taken Unknown] Carvedilol [Coreg] 6.25 mg PO BID #60 tablet 09/17/18 [Last Taken Unknown] Ibuprofen [Motrin] 800 mg PO Q8H PRN tablet 09/17/18 [Last Taken Unknown] Losartan Potassium [Cozaar] 25 mg PO DAILY #30 tablet 09/17/18 [Last Taken Unknown] Multivitamin/Iron/Folic Acid [Centrum] 1 tab PO DAILY tablet 09/17/18 [Last Taken Unknown] Discharge Plan - Discharge Instructions Activity at Discharge: Increase Activity as Tolerated Diet at Discharge: Low Salt Diet Additional Instructions: Follow up appointments have been scheduled as follows: -09/19/2018, 9AM: [facility]- [facility], [facility], -10/17/18, 8:15 AM: Chest Xray before appointment with Dr. Mariee [facility], 1st floor -10/17/18, 9:30 AM: Dr. Mariee at [facility], -10/23/2018, 12:30 PM: Dr. Venegas, cardiology Thoracic Cardiovascular [place] ([facility]), 4th floor. [phone] follow up with family Dr. Dunlap in one week stop metorolol at home Quality Measures - Quality Measures Quality Measures: Advance Directives, Coronary Artery Disease: Antiplatelet Therapy, Documentation of Current Medications in Medical Record, Elder Maltreatment Screen and Follow-Up Plan, Screening for High Blood Pressure and F/ U Documented - Current Medications Quality Measure: Measure #130: Documentation of Current Medications Documentation of Current Medications: <Current Medications Documented/Reviewed> [G8827] - Blood Pressure Screening Quality Measure: Screening for High Blood Pressure and Follow-Up Documented Does Patient Have Any of the Following: Active Dx of HTN Blood Pressure Classification: Pre-Hypertensive BP Reading Systolic Measurement: 131 Diastolic Measurement: 54 Screening for High Blood Pressure: Patient Exclusion, Hx of HTN [G9744] - Coronary Artery Disease Quality Measure: Measure #6: Coronary Artery Disease (CAD) Antiplatelet Therapy: <ASA or clopidogrel prescribed> [9566F] - Advance Directives Quality Measure: Measure #47: Care Plan Advance Directives Established: No Advance Directives Information Provided To Patient: No Advance Directives on File: No Living Will: No Power of Smelter Charger: No Advance Care Planning: <Care Plan/Decision Maker Documented; Discussed & Documented> [7653F] - Elder Abuse Suspicion Index Screening: Elder Abuse Suspicion Index Screening Rely on people for bathing, dressing, shopping, banking, etc: No Prevented from getting food, clothes, medication, etc: No Made to feel shamed or threatened by someone: No Forced to sign papers or use money against will: No Feel afraid, touched in ways not wanted or hurt physically: No Poor eye contact, withdrawn, malnourished, cuts or bruises: No Screening Result: Negative result EASI Reference Information: Dave CAMPBELL, Brian C, Evelyn D, He Bolden.Development and validation of a tool to assist physicians identification of elder abuse: The Elder Abuse Suspicion Index (EASI ). Journal of Elder Abuse and Neglect, 2008; 20 (3): 276-300. - Elder Maltreatment Screen Quality Measures: Elder Maltreatment Screen and Follow-Up Plan Elder Maltreatment Screen: <Negative, No Follow-Up Plan Required> [G5769]
[2018-09-17] MEDS: MULTIVITAMINS/MINERALS TABLET PO SCH (09:39)
[2018-09-17] MEDS: CALCIUM CARB/VITAMIN D 500MG/200IU PO SCH (09:39)
[2018-09-17] MEDS: ASCORBIC ACID 500 MG TAB PO SCH (09:40)
[2018-09-17] MEDS: AMIODARONE HCL 200 MG TABLET PO SCH (09:40)
[2018-09-17] MEDS: ENOXAPARIN 40 MG/0.4 ML SYR SQ SCH (09:41)
[2018-09-17] MEDS: ASPIRIN 81 MG TABEC PO SCH (09:41)
[2018-09-17] MEDS: CARVEDILOL 3.125 MG TABLET PO SCH (09:41)
[2018-09-17] MEDS: MAGNESIUM OXIDE 400 MG TABLET PO SCH (09:41)
[2018-09-17] MEDS: LOSARTAN POTASSIUM 25 MG TABLET PO SCH (09:41)
[2018-09-17] MEDS: IBUPROFEN 400 MG TABLET PO PRN (11:13)
--- NOTE | 2018-09-17 11:41 | Occupational Therapy Tx Note ---
Occupational Therapy Tx Note - Treatment Note Tolerated: Good Total Time Spent With Patient: 50 (gait, ther ex) Occupational Therapy Treatment Note: Detail (S: Pt up in chair, visiting with and daughter. O: Pt reports home visit went well and he only had trouble getting up from low chairs. Reviewed with pt and family that elevating a chair or two would be beneficial and using arm rests is easier even with restrictions. They verbalized understanding. Pt amb 500 + feet with 2 wheeled walker Indly to rehab gym. Pt completed evelina UE endurance and gentle strengthening task with 1# wrist weights using resisted clothespins for overhead reaching. Pt reports fatigue and weakness in left hand. Per dynamometer arboreal scientist is 72# in right hand and 50# in left hand. Provided pt with green theraputty and HEP for arboreal scientist, pinch and finger extension. Pt completed 5 min with green putty with each hand and was Ind with HEP. Pt completed evelina UE arm circles x 10 forward and 10 reverse as well as neck ROM in standing. Pt amb 500+ feet back to room with 2 wheeled walker. Pt required 2 rest breaks of 10 seconds on the return walk. A: Pt demonstrates improved UE endurance and overall activity tolerance. He is Ind with UE AROM and putty HEP.) Occupational Therapy Problem List: Detail (1. Slightly impaired activity tolerance. 2. Decreased functional mobility/sit to stand transfers) Occupational Therapy Goals: 1. Pt will tolerate ADL/IADL activity with minimal c/o fatigue. 2. Pt will be Ind with functional mobility needed for Ind self cares. Prognosis: Good Occupational Therapy Plan: OT 2-4 times per week to address goals and problem list above.
--- NOTE | 2018-09-17 11:50 | Rehab Discharge Summary ---
Patient Information - Patient Information Diagnosis: Deconditioning s/p CABG x 3 Ordered Treatment: PT Evaluate and Treat Surgery: Yes (3 vessel CABG) Date of Surgery: 09/04/18 History: Detail (Pt presented to [facility] ED on 09/01/18 w/chest pain and shortness of breath. He was subsequently transferred to [facility] with acute myocardial infarction. Underwent 3 vessel CABG on 09/04/18 and is admitted for short term rehabilitation to address deconditioning.) Past Medical/Surgical Hx: PAST MEDICAL/SURGICAL HISTORY Past Surgical History knee PMH - Respiratory Hx Respiratory Disorders No PMH - Cardiovascular Hx Cardiovascular Disorders Yes Hx Hypertension Yes PMH - Neuro Hx Neurological Disorders No Hx Seizures No PMH - GI Hx Gastrointestinal Disorders No PMH - Hx Genitourinary Disorders No PMH - Endocrine Hx Endocrine Disorders No PMH - Musculoskeletal Hx Musculoskeletal Disorders No PMH - Psych Hx Psychiatric Problems No PMH - Hematology/Oncology Hx Hematology/Oncology No Disorders Premorbid Status: Detail (Pt was actively participating in usual ADLs, including 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 He did not engage in regular exercise but was active with daily activities. He was independent with all self-care activities, yardwork, washing dishes and horse maintenance. He reports that he fell 2 or 3 times just before coming to the ED because he felt so weak, but generally has no balance difficulties. He did not use any assistive device for ambulation, but he does own a cane.) Social History: Detail (Pt lives with his Pat and one dog and one cat, in a single story home with an unfinished basement (14 stairs). He does have a workshop in the basement. There are three steps to enter from the front and from the garage, 6 steps at the back deck. No handrail at the front, freezer next to the steps in the garage, and B handrails at the deck. He has a walk in shower and a tub/shower combination, no seat but he has suction cup grab bars if needed. He has an elevated toilet in the main bathroom and a standard height toilet in the second bathroom, no grab bars next to either toilet. 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) - Strength/Tone Within normal limits (The paitent's bilateral LE strength is 4/5 in proximal muscles , all other musculature is 4+/5.) - Bed Mobility Needs Assist (The patient required a 6 inch stool for sit to supine ( simulating his high bed at home) and minimal PA to lift LE's. The patient was independent with supine to sit. The patient stated his will help him at home with lifting his LE's.) - Transfers Independent (The patient was independent with sit to and from stand transfer from high surfaces, toilet transfer and car transfer. The patient requires occasional minimal assist with sit to and from stand from lower surfaces and is to use cushions in chairs at home.) - Balance Balance Sitting: Good Balance Standing: Good - Gait Detail (The patient ambulates with front wheeled walker communtiy distances independently. The patient ambulates indpendently without device household distances. The patient ambulated on 3 stairs with use of hand rail with supervision for safety only. The patient also ambulated on curb step using proper technique with supervision for safety.) Problem List - Problem List Physical Therapy Problem List: Detail (1. Requires assist for bed mobility. 2. Impaired activity tolerance. 3. Mild proximal LE weakness.) Occupational Therapy Problem List: Detail (1. Slightly impaired activity tolerance. 2. Decreased functional mobility/sit to stand transfers) Goals - Goals Physical Therapy Goals: 1. Formally assess balance. ( Not formally assessed using objective Balance Test due to short Rehab stay -Home PT to assess). 2. Pt will be independent with bed mobility.( Goal met with assist of LE only with sit to supine- agrees to assist). 3. Pt will tolerate 20 minutes of low intensity activity/exercise without undue fatigue. (Goal Met). 4. Pt will exhibit 4+/5 strength in B proximal LE's for stability with ambulation w/or w/o assistive device. (Goal Not Met due to short Rehab stay- to continue with Home PT). 5. Pt will safely and independently ambulate over short community distances/surfaces with least restrictive assistive device. (Goal Met) Occupational Therapy Goals: 1. Pt will tolerate ADL/IADL activity with minimal c/o fatigue. 2. Pt will be Ind with functional mobility needed for Ind self cares. Prognosis - Prognosis Good Plan - Plan Physical Therapy Plan: After short subacute Rehab stay the patient was discharged to home. The patient is to receive Home PT. Occupational Therapy Plan: OT 2-4 times per week to address goals and problem list above.
--- NOTE | 2018-09-17 13:59 | Rehab Discharge Summary ---
Patient Information - Patient Information Diagnosis: Deconditioning s/p CABG x 3 Ordered Treatment: OT Evaluate and Treat Surgery: Yes (3 vessel CABG) Date of Surgery: 09/04/18 History: Detail (Pt presented to [facility] ED on 09/01/18 w/chest pain and shortness of breath. He was subsequently transferred to [facility] with acute myocardial infarction. Underwent 3 vessel CABG on 09/04/18 and is admitted for short term rehabilitation to address deconditioning.) Past Medical/Surgical Hx: PAST MEDICAL/SURGICAL HISTORY Past Surgical History knee PMH - Respiratory Hx Respiratory Disorders No PMH - Cardiovascular Hx Cardiovascular Disorders Yes Hx Hypertension Yes PMH - Neuro Hx Neurological Disorders No Hx Seizures No PMH - GI Hx Gastrointestinal Disorders No PMH - Hx Genitourinary Disorders No PMH - Endocrine Hx Endocrine Disorders No PMH - Musculoskeletal Hx Musculoskeletal Disorders No PMH - Psych Hx Psychiatric Problems No PMH - Hematology/Oncology Hx Hematology/Oncology No Disorders Premorbid Status: Detail (Pt was actively participating in usual ADLs, including 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 He did not engage in regular exercise but was active with daily activities. He was independent with all self-care activities, yardwork, washing dishes and horse maintenance. He reports that he fell 2 or 3 times just before coming to the ED because he felt so weak, but generally has no balance difficulties. He did not use any assistive device for ambulation, but he does own a cane.) Social History: Detail (Pt lives with his Pat and one dog and one cat, in a single story home with an unfinished basement (14 stairs). He does have a workshop in the basement. There are three steps to enter from the front and from the garage, 6 steps at the back deck. No handrail at the front, freezer next to the steps in the garage, and B handrails at the deck. He has a walk in shower and a tub/shower combination, no seat but he has suction cup grab bars if needed. He has an elevated toilet in the main bathroom and a standard height toilet in the second bathroom, no grab bars next to either toilet. 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 Remaining UE strength 4+/ 5.) - Coordination Appears within normal limits for therapeutic activities - Transfers Independent (Ind with sit to stand from various surfaces although he requires min assist if very fatigued.) - Balance Balance Sitting: Good Balance Standing: Good - Sensation Intact - Gait Detail (Pt ambulating community distances with 2 wheeled walker Indly.) - ADL's/IADL's Detail (Pt Ind with total body showering and dressing in sitting and standing.) Therapy Assessment - Therapy Assessment Detail (Pt is Ind with self cares and functional mobility. Endurance is significantly improved.) Problem List - Problem List Physical Therapy Problem List: Detail (1. Requires assist for bed mobility. 2. Impaired activity tolerance. 3. Mild proximal LE weakness.) Occupational Therapy Problem List: Detail (1. Slightly impaired activity tolerance. 2. Decreased functional mobility/sit to stand transfers) Goals - Goals Physical Therapy Goals: 1. Formally assess balance. ( Not formally assessed using objective Balance Test due to short Rehab stay -Home PT to assess). 2. Pt will be independent with bed mobility.( Goal met with assist of LE only with sit to supine- agrees to assist). 3. Pt will tolerate 20 minutes of low intensity activity/exercise without undue fatigue. (Goal Met). 4. Pt will exhibit 4+/5 strength in B proximal LE's for stability with ambulation w/or w/o assistive device. (Goal Not Met due to short Rehab stay- to continue with Home PT). 5. Pt will safely and independently ambulate over short community distances/surfaces with least restrictive assistive device. (Goal Met) Occupational Therapy Goals: Goals Met: 1. Pt will tolerate ADL/IADL activity with minimal c/o fatigue. 2. Pt will be Ind with functional mobility needed for Ind self cares. Prognosis - Prognosis Good Plan - Plan Physical Therapy Plan: After short subacute Rehab stay the patient was discharged to home. The patient is to receive Home PT. Occupational Therapy Plan: Pt discharged home with home therapy. Recommend outpatient cardiac rehab when cleared by cardiology.
[2018-09-20] MEDS ORDERED: AMIODARONE HCL 200 MG TABLET PO SCH (10:00)
== END 2018-09-17 11:45 | disposition home or self-care (01) | DRG 951 ==
LOC: MEDSURG 11:45
PROVIDERS: ADMIT Emergency Medicine; ATTEND Emergency Medicine
DX: Z95.1 Presence of aortocoronary bypass graft (principal); I21.4 Non-ST elevation (NSTEMI) myocardial infarction; I10 Essential (primary) hypertension; E78.00 Pure hypercholesterolemia, unspecified; I73.9 Peripheral vascular disease, unspecified; I48.0 Paroxysmal atrial fibrillation
CPT/HCPCS: 80048; 83735; 85027; 97110; 97116; 97530; 99306; 99316; J1650